=== PATIENT | female | born 1995 | race Two or more races ===

== ENCOUNTER 2023-03-15 11:19 | Inpatient (IN) | payer MEDICAID, SELFPAY ==
[2023-03-15 11:22] VITALS: BMI 28.3
[2023-03-15 14:00] VITALS: BP 106/70; PULSE 101; RESP 18; TEMP 36.8; O2SAT 99
--- NOTE | 2023-03-15 15:17 | PC.NURSE ---
PT WAS A DIRECT ADMIT FROM [facility] IN [facility]. PT HAS SUPERFICIAL LACERATIONS NOTED TO THE R LATERAL NECK. PT STATED YESTERDAY I TRIED TO KILL MYSELF BUT THE KNIFE WASN'T SHARP ENOUGH THATS WHAT THOSE ARE FROM ON MY NECK. PT STATES THAT SHE HEARS VOICES THAT ARE CONSTANTLY TALKING ABOUT WHAT IS GOING ON IN HER LIFE MAKING HER DEPRESSION WORSE. PT ENDORSED BELIEF THAT THESE VOICES ARE PEOPLE WHO ARE AFTER HER AND THAT THE VOICES HAVE KILLED HER MOTHER HAS SHE COULD NOT GET AHOLD OF HER MOTHER TODAY. PT ALSO ENDORSES SEEING THINGS BUT WOULD NOT ELABORATE. PT ADMITS TO USE OF METHAMPHETAMINE, SYNTHETIC MARIJUANA, AND OCCASIONAL USE OF MARIJUANA. PT IS CURRENTLY HOMELESS AND STATES THAT SHE BELIEVES IT IS BECAUSE OF THE DRUG USE.
[2023-03-15 19:53] VITALS: BP 110/73; PULSE 93; RESP 18; TEMP 36.7; O2SAT 100
[2023-03-16 06:00] VITALS: BP 99/64; PULSE 95; RESP 16; TEMP 36.6; O2SAT 99
--- NOTE | 2023-03-16 08:07 | W.PM.NPUH&PS ---
Providers/Chief Complaint Admitting Physician: Jovan Pabon MD Chief Complaint: SI HPI NPU History of Present Illness Carol Cook is a 27 year old female who presented to the outside hospital reporting being suicidal with a plan to cut herself but she did not have a knife sharp enough. She then asked security to shoot her. While being examined she gave multiple requests to be killed and endorsed suicidal ideation for the past month. She reports that she tried to cut her neck and wrist but did have a enrichment teacher. And that her last methamphetamine use was 2 days ago she reported that her last alcohol use was the night prior. And reports that she discontinued her medication for unclear reasons. [facility] and this is why she wants to kill herself because it is a horrible place to be. At that time there was no sign of cuts on her neck or wrist. She was transferred to [facility] and admitted to the neuropsychiatric unit for definitive treatment of these issues. She presents today reporting that she hears voices but she knows that they are real and that she is suicidal but does not want to take medication. We were attempting to get her psychiatric history as she reported she has been hospitalized in the past and when this data analyst report writer went on to ask about outpatient services she said you obviously know this information already wiry doing this and stormed out of the room and ended the interview that was not continue any further. Outside hospital records suggest that the last noted methamphetamine positive screen was in August 2022. She has reportedly 1/2 pack a day smoker who augments with a vape. Last known medications were Risperdal 1.5 mg p.o. twice daily and Wellbutrin XL 300 mg p.o. every morning she has a past history of hepatitis she has previously been diagnosed with bipolar disorder. She had 11 grade education, is currently unemployed and is homeless. She has a history of psychiatric treatment at [facility] in the past. Meds NPU Home Medications Medication Instructions Recorded Confirmed Last Taken Type No Known Home Medications 03/15/23 03/15/23 Unknown History Allergies Allergy/AdvReac Type Severity Reaction Status Date / Time No Known Allergies Allergy Verified 03/15/23 11:22 Mental Status Exam MSE Comments: This is a overweight -[place] female in hospital scrubs with poor grooming and limited eye contact. No abnormal movements except for psychomotor agitation. Uncooperative with exam and moderate distress. Speech was increased rate and volume. Mood not described, affect irritable. Thought process linear. Thought content: Patient endorsed suicidal but did not report homicidal ideation, there were no delusions reported but paranoia and persecutory delusions were present, she endorsed hearing voices but reported that she knows that they are real. Attention and concentration were limited and memory was unreliable but none were formally tested. She was alert and oriented to person and place. Insight, judgment and impulse control are impaired. Vitals/I&O/Wt Last Vital Signs Temp 97.8 F 03/16/23 06:00 Pulse 95 03/16/23 06:00 Resp 16 03/16/23 06:00 BP 99/64 03/16/23 06:00 Pulse Ox 99 03/16/23 06:00 O2 Del Method Room Air 03/16/23 06:00 Weight last 48 hrs Weight 77.111 kg A&P Assessment and plan (1) Psychosis: (2) History of methamphetamine use: (3) History of marijuana use: (4) Malingering: Rule out Plan This is a 27-year-old -[place] female with reported history of past psychiatric services who presents endorsing hallucinations and suicidality and reporting no interest in taking medications and not being willing to engage in the majority of the interview. 1. Continue off medications while we explore the situation. 2. Continue every 15 minute checks for safety. 3. Encourage individual, group and milieu therapy. 4. Encourage sober living treatment after discharge at the highest level of care to which she is willing to commit. 5. Evaluate for the need for a 96-hour hold versus discharge with concern for malingering. It was unclear whether she was being authentic and is psychotic and likely needing a 96-hour hold or whether she is homeless and trying to present an image that would be consistent with a inpatient stay. Involuntary Hold Information 96 Hour Hold: 96 Hour Involuntary Admission: No Attestations NPU Medical Necessity Statement*: Inpatient hospitalization is medically necessary and the clinically appropriate intervention at this time. We will monitor medications and make changes as indicated. He will be in the hospital for over 2 midnights. Likely length of stay 3 to 5 days. Coding Level of Care Code Acute Code for Chg Fwd Diagnoses Psychosis F29 History of methamphetamine use F15.91 History of marijuana use F12.91 Malingering Z76.5
[2023-03-16] MEDS: hyDROXYzine 25 mg Capsule 50 MG PO (08:45)
--- NOTE | 2023-03-16 09:00 | PC.NURSE ---
During morning assessment, patient stated to this nurse that she no longer wants to be here but doesn't want to harm herself. Patient reports anxiety. Denies ALEXANDER COOK. Administered Vistaril 50mg PO to patient for anxiety. Will continue to monitor.
[2023-03-16 14:00] VITALS: BP 112/70; PULSE 87; RESP 16; TEMP 36.3; O2SAT 99
[2023-03-16] MEDS: blistex lip oint 7 gm Tube 1 APPLIC TOPICAL (17:46)
[2023-03-16 20:18] VITALS: BP 102/69; PULSE 92; RESP 16; TEMP 36.9; O2SAT 99
[2023-03-17 06:00] VITALS: BP 109/73; PULSE 90; RESP 18; TEMP 36.9; O2SAT 99
--- NOTE | 2023-03-17 09:41 | PC.NURSE ---
Patient stated I don't want to be alive. Patient denied any plans. Patient reports anxiety and depression, refused medication for anxiety, stating I'm not gonna take your meds.
[2023-03-17 14:00] VITALS: BP 125/75; PULSE 93; RESP 17; TEMP 36.7; O2SAT 97
--- NOTE | 2023-03-17 17:14 | W.PM.NPUPNS ---
Subjective NPU Subjective: Patient presented today reporting that she was doing a little better. She apologized for her irritable and challenging behaviors yesterday. She reported that she is feeling positive about her work with the social work team and finding a place called [facility] for her to discharge to. We agreed we would discuss her admission with them tomorrow which would allow for a discharge here Wednesday. She is considering whether some medication for her depression, anxiety or irritability would be appropriate. Mental Status Exam MSE Comments: This is a overweight -[place] Citizen female in hospital scrubs with limited grooming and eye contact. No abnormal movements except for psychomotor retardation. Much more cooperative with exam in mild distress. Speech was more normal rate and volume. Mood described as okay, affect less irritable. Thought process linear. Thought content: Patient reported no suicidal or homicidal ideation, there were no delusions reported and less paranoia noted, she did not report any auditory or visual hallucinations. Attention and concentration were improving and memory was more reliable but none were formally tested. She was alert and oriented to person and place. Insight and judgment are improving and impulse control limited. Vitals/I&O/Wt Last Vital Signs Temp 98.0 F 03/17/23 14:00 Pulse 93 03/17/23 14:00 Resp 17 03/17/23 14:00 BP 125/75 03/17/23 14:00 Pulse Ox 97 03/17/23 14:00 O2 Del Method Room Air 03/17/23 06:00 A&P Assessment and plan (1) Psychosis: (2) History of methamphetamine use: (3) History of marijuana use: (4) Malingering: Rule out Plan This is a 27-year-old -[place] Citizen female with reported history of past psychiatric services who presents endorsing hallucinations and suicidality and reporting no interest in taking medications and not being willing to engage in the majority of the interview. 1. Continue off medications while we explore the situation. 2. Continue every 15 minute checks for safety. 3. Encourage individual, group and milieu therapy. 4. Encourage sober living treatment after discharge at the highest level of care to which she is willing to commit. 5. Evaluate for the need for a 96-hour hold versus discharge with concern for malingering. It was unclear whether she was being authentic and is psychotic and likely needing a 96-hour hold or whether she is homeless and trying to present an image that would be consistent with a inpatient stay. 6. Tentative plan for discharge on Wednesday to [facility]. They will require notification tomorrow for a Wednesday admission. Involuntary Hold Information 96 Hour Hold: 96 Hour Involuntary Admission: No Attestations NPU Medical Necessity Statement*: Inpatient hospitalization is medically necessary and the clinically appropriate intervention at this time. We will monitor medications and make changes as indicated. Likely length of stay 2 days. Coding Level of Care Code Acute Code for Chg Fwd Diagnoses Psychosis F29 History of methamphetamine use F15.91 History of marijuana use F12.91 Malingering Z76.5
--- NOTE | 2023-03-17 20:18 | PC.NURSE ---
IN ROOM RESTING AROUSES TO VOICE. DENIES SI/HI AND AVH AT THIS TIME. RATES ANXIETY 8/10 AND DEPRESSION 8/10. FLAT AFFECT IS NOTED AND PT DOES ISOLATE AND WITHDRAW TO ROOM. DENIES PAIN. PT CONTINUES TO REST AND VOICES NO CONCWERNS. DECLINES ANY PHARMACEUTICAL INTERVENTION TO REDUCE ANXIETY AT THIS TIME. PT WAS EDUCATED IF SHE CHANGES HER MIND TO LET THIS RN KNOW. PT VERBALIZED UNDERSTANDING.
[2023-03-17 22:00] VITALS: BP 110/65; PULSE 90; RESP 18; TEMP 37; O2SAT 98
[2023-03-17] MEDS: trazodone 50 mg Tablet PO (23:11)
[2023-03-18 06:00] VITALS: BP 109/69; PULSE 93; RESP 17; TEMP 36.8; O2SAT 97
--- NOTE | 2023-03-18 06:29 | PC.NURSE ---
PT WAS ADMINISTERED TRAZODONE 50 MG LAST NIGHT FOR REPORTS OF INSOMNIA. MEDICATION IS DEEMED EFFECTIVE, PT SLEPT APPROXIMATELY 9 H OURS WITHOUT ISSUE.
--- NOTE | 2023-03-18 08:54 | PC.NURSE ---
Patient reports some anxiety. Patient denies thoughts of harming self, harming others, and AVH. Patient states that she is happy because she has been accepted into a place and that it feels good to be wanted, per patient.
[2023-03-18 13:46] VITALS: BP 110/68; PULSE 87; RESP 15; TEMP 36.4; O2SAT 96
--- NOTE | 2023-03-18 18:20 | W.PM.NPUPNS ---
Subjective NPU Subjective: Patient presented today reporting that she felt like she was doing okay. She also queried whether she was actually ready to go tomorrow. Staff reports she seemed to get along well with her roommates and so she is possibly enjoying that camaraderie. We discussed that they have a bed available for her and that we will work with the social work team for transportation to [facility] tomorrow. Mental Status Exam MSE Comments: This is a overweight -Cypriot female in hospital scrubs with limited grooming and eye contact. No abnormal movements except for psychomotor retardation. Much more cooperative with exam in mild distress. Speech was more normal rate and volume. Mood described as okay, affect euthymic. Thought process linear. Thought content: Patient reported no suicidal or homicidal ideation, there were no delusions reported and less paranoia noted, she did not report any auditory or visual hallucinations. Attention and concentration were improving and memory was more reliable but none were formally tested. She was alert and oriented to person and place. Insight and judgment are improving and impulse control limited. Vitals/I&O/Wt Last Vital Signs Temp 97.6 F 03/18/23 20:46 Pulse 78 03/18/23 20:46 Resp 16 03/18/23 20:46 BP 118/77 03/18/23 20:46 Pulse Ox 97 03/18/23 20:46 O2 Del Method Room Air 03/18/23 20:46 A&P Assessment and plan (1) Psychosis: (2) History of methamphetamine use: (3) History of marijuana use: (4) Malingering: Rule out Plan This is a 27-year-old -Cypriot female with reported history of past psychiatric services who presents endorsing hallucinations and suicidality and reporting no interest in taking medications and not being willing to engage in the majority of the interview. 1. Continue off medications while we explore the situation. 2. Continue every 15 minute checks for safety. 3. Encourage individual, group and milieu therapy. 4. Encourage sober living treatment after discharge at the highest level of care to which she is willing to commit. 5. Evaluate for the need for a 96-hour hold versus discharge with concern for malingering. It was unclear whether she was being authentic and is psychotic and likely needing a 96-hour hold or whether she is homeless and trying to present an image that would be consistent with a inpatient stay. 6. Tentative plan for discharge on Wednesday to [facility]. Involuntary Hold Information 96 Hour Hold: 96 Hour Involuntary Admission: No Attestations NPU Medical Necessity Statement*: Inpatient hospitalization is medically necessary and the clinically appropriate intervention at this time. We will monitor medications and make changes as indicated. Likely length of stay 1 days. Coding Level of Care Code Acute Code for Chg Fwd Diagnoses Psychosis F29 History of methamphetamine use F15.91 History of marijuana use F12.91 Malingering Z76.5
[2023-03-18] MEDS: nicotine 2 mg Gum BUCCAL (18:46)
[2023-03-18 20:46] VITALS: BP 118/77; PULSE 78; RESP 16; TEMP 36.4; O2SAT 97
[2023-03-19 06:00] VITALS: BP 112/66; PULSE 70; RESP 16; O2SAT 99
--- NOTE | 2023-03-19 11:45 | P.NPUDS_ITS ---
Diagnoses at Discharge Discharge Diagnosis (1) Psychosis: Status: Acute (2) History of methamphetamine use: Status: Acute (3) History of marijuana use: Status: Acute (4) Malingering: Status: Acute Reason for Visit Reason for Visit: SI Brief History: History of Present Illness Carol Cook is a 27 year old female who presented to the outside hospital reporting being suicidal with a plan to cut herself but she did not have a knife sharp enough. She then asked security to shoot her. While being examined she gave multiple requests to be killed and endorsed suicidal ideation for the past month. She reports that she tried to cut her neck and wrist but did have a volleyball referee. And that her last methamphetamine use was 2 days ago she reported that her last alcohol use was the night prior. And reports that she discontinued her medication for unclear reasons. [facility] and this is why she wants to kill herself because it is a horrible place to be. At that time there was no sign of cuts on her neck or wrist. She was transferred to [facility] and admitted to the neuropsychiatric unit for definitive treatment of these issues. She presents today reporting that she hears voices but she knows that they are real and that she is suicidal but does not want to take medication. We were attempting to get her psychiatric history as she reported she has been hospitalized in the past and when this selling underwriter went on to ask about outpatient services she said you obviously know this information already wiry doing this and stormed out of the room and ended the interview that was not continue any further. Outside hospital records suggest that the last noted methamphetamine positive screen was in August 2022. She has reportedly 1/2 pack a day smoker who augments with a vape. Last known medications were Risperdal 1.5 mg p.o. twice daily and Wellbutrin XL 300 mg p.o. every morning she has a past history of hepatitis she has previously been diagnosed with bipolar disorder. She had 11 grade education, is currently unemployed and is homeless. She has a history of psychiatric treatment at [facility] in the past. Hospital Course Hospital Course She slowly acclimated to the individual, group and milieu therapies provided. She presented with significant psychosocial issues surrounding possible abuse, addiction and other challenges including being homeless. Concerns existed for malingering. She was initially very agitated and unwilling to even be evaluated but this quickly changed raising the question of cluster B pathology. Ultimately she did not start any medications but did work with the social work team on aftercare and follow-up including options for safe residential considerations. She had modest improvement and she was able to contract for safety outside hospital prior to discharge. At the outside hospital, patient had routine laboratory studies which were within normal limits except for few o utliers. Additionally there was a general medical evaluation which was also within normal limits and revealed no new acute processes. Discharge Summary: At the time of discharge, she denied psychosis or lethality. Mood and anxiety were well managed. Patient endorsed a plan to follow-up with the aftercare recommendations of the treatment team. Patient was evaluated and deemed to be absent credible lethality, and had achieved the maximum benefit from an inpatient hospitalization, so was discharged. Involuntary Hold Information 96 Hour Hold: 96 Hour Involuntary Admission: No Mental Status Exam MSE Comments: This is a overweight -Maldivian female in hospital scrubs with limited grooming and eye contact. No abnormal movements except for psychomotor retardation. Much more cooperative with exam in mild distress. Speech was more normal rate and volume. Mood described as okay, affect euthymic. Thought process linear. Thought content: Patient reported no suicidal or homicidal ideation, there were no delusions reported and less paranoia noted, she did not report any auditory or visual hallucinations. Attention and concentration were improving and memory was more reliable but none were formally tested. She was alert and oriented to person and place. Insight and judgment are improving and impulse control limited. Discharge Data Vitals: Last Vital Signs Temp 97.6 F 03/18/23 20:46 Pulse 70 03/19/23 06:00 Resp 16 03/19/23 06:00 BP 112/66 03/19/23 06:00 Pulse Ox 99 03/19/23 06:00 O2 Del Method Room Air 03/18/23 06:00 Discharge Plan Discharge Patient Disposition: Home Condition: Stable Prescriptions: No Action No Known Home Medications Discharge Orders: Discharge Order (Routine); Ordered 03/19/23 Ordered By: Jovan Pabon Referrals: Vangie Fowler [Other] - 03/19/23 [facility]-Initial assessment [Other] - 04/05/23 1:30 pm (1:30pm arrival for 2pm initial assessment with Ferny Patterson) Dr Farnsworth [Other] - 04/22/23 1:40 pm (Arrive 1:40pm for 2pm appointment) Discharge Diet: Regular Discharge Activity: Resume usual activity Patient Instructions: Depression (DC), Help Prevent Suicide (DC), Suicide Prevention (DC), Opioid Safety Discharge Attestations NPU Time Spent in Discharge Care*: less than 30 min Specific Discharge Activities: Specific discharge activities: educating patient, discussing with case management assistant/social workers/dc planners, documenting/other paperwork and evaluating patient/reviewing data Coding Level of Care Code Acute Code for Chg Fwd Diagnoses Psychosis F29 History of methamphetamine use F15.91 History of marijuana use F12.91 Malingering Z76.5
[2023-03-19 11:47] VITALS: BP 112/66; PULSE 70; RESP 16; O2SAT 99
== END 2023-03-19 12:51 | disposition home or self-care (01) | DRG 885 ==
PROVIDERS: Admitting Provider Psychiatry & Neurology Psychiatry; Visit Provider Psychiatry & Neurology Psychiatry
DX: F29 Unspecified psychosis not due to a substance or known physiological condition (principal); R45.851 Suicidal ideations; Z59.01 Sheltered homelessness; F32.A Depression, unspecified; F41.9 Anxiety disorder, unspecified; Z91.148 Patient's other noncompliance with medication regimen for other reason; Z56.0 Unemployment, unspecified; Z86.19 Personal history of other infectious and parasitic diseases; Z76.5 Malingerer [conscious simulation]; F17.290 Nicotine dependence, other tobacco product, uncomplicated
CPT/HCPCS: 97150; 97165